=== PATIENT | male | born 1950 ===

== ENCOUNTER 2020-08-02 12:59 | Outpatient (CLI) | payer OTHER ==
[~2020-08-02 12:59] MED LIST: AVALIDE 150-12.1 TA1; METFORMIN HCL500 MG
== END 2020-08-02 13:01 | disposition home or self-care (01) ==
LOC: SONOGRAMA 12:59 → MAMO-SONO 13:15
PROVIDERS: ATTEND Internal Medicine
DX: N20.0 Calculus of kidney (principal); N28.1 Cyst of kidney, acquired; N28.89 Other specified disorders of kidney and ureter

== ENCOUNTER → 2025-04-05 | Outpatient (CLI) | payer OTHER | END | disposition home or self-care (01) | LOC: RAD 15:02 | DX: M54.50 Low back pain, unspecified (principal); M25.559 Pain in unspecified hip ==